=== PATIENT | male | born 1950 | race African-American/Black ===

== ENCOUNTER → 2021-06-24 | Day surgery (SDC) | payer MEDICARE ==
[~2021-06-24] VITALS: Ht 185.4 cm; Wt 78.0 kg
[~2021-06-24] MED LIST: AMLODIPINE BESYL5 MG PO; MORPHINE SULFAT60 M1 PO; NORCO 5/3251 EACH PO; VENTOLIN HFA IN18 GM INH
== END | disposition home or self-care (01) ==
LOC: FAS 08:24
DX: Z12.11 Encounter for screening for malignant neoplasm of colon (principal); Z80.0 Family history of malignant neoplasm of digestive organs; Z86.010 Personal history of colon polyps; I10 Essential (primary) hypertension; G47.30 Sleep apnea, unspecified; J40 Bronchitis, not specified as acute or chronic; G89.29 Other chronic pain; F17.200 Nicotine dependence, unspecified, uncomplicated
CPT/HCPCS: J1642; J2704; J7120

== ENCOUNTER 2021-10-04 07:23 | Emergency (ER) | payer MEDICARE, OTHER ==
[~2021-10-04 07:23] MED LIST changes: +3IN1 COMMODE; +ALBUTEROL HFA INH; +MORPHINE SULFAT90 MG PO; +MUCINEX 600MG600 MG PO; +NORVASC5 MG PO; +ONDANSETRON ODT4 MG PO
[2021-10-04 08:26] LABS: BASOPHIL 0.6 % (0-2); EOSINOPHIL 0.1 % (0-7); HCT 41.2 % (42.0-52.0); HGB 13.2 g/dl (13.2-18.0); LYMPHOCYTE 28.3 % (15-48); MCH 26.7 pg (25.0-31.0); MCV 83.4 fL (78.0-100.0); MONOCYTE 11.6 % (0-12); MPV 10.5 fL (6.0-9.5); NEUTROPHIL 51.6 % (41-80); NRBC 0; PLT 261 K/uL (150-400); RBC 4.94 M/uL (4.70-6.00); RDW 13.5 % (11.5-14.0); WBC 7.7 K/uL (4.0-10.5)
[2021-10-04 08:31] LABS: INR 1.09 (0.9-1.2); PROTHROMBIN TIME 13.5 SECONDS (11.8-13.4)
[2021-10-04 08:33] LABS: D-DIMER 2.53 ug/mLFEU (0.00-0.41)
[2021-10-04 08:43] LABS: ALBUMIN 1.8 g/dL (3.4-5.0); BILIRUBIN - TOTAL 0.4 mg/dL (0.2-1.0); BUN/CREAT RATIO (CALC) 27.5 RATIO; C-REACTIVE PROTEIN 0.8 mg/dL (<=0.90); CREATININE 1.71 mg/dL (0.67-1.17); GLOBULIN (CALCULATION) 4.3 g/dL; MAGNESIUM 1.7 mg/dL (1.8-2.4); POTASSIUM 3.9 mmol/L (3.5-5.1); TOTAL PROTEIN 6.1 g/dL (6.4-8.2)
[2021-10-04 08:54] LABS: PTT 71.3 SECONDS (24.4-34.7)
[2021-10-04 08:55] LABS: LACTIC ACID 1.4 mmol/L (0.4-1.9)
[2021-10-04 09:15] LABS: IRON % SATURATION 20.7 %SAT (20-50)
[2021-10-04 11:11] LABS: BILIRUBIN NEGATIVE (NEGATIVE); BLOOD 2+ Ery/uL (NEGATIVE); CLARITY CLEAR (CLEAR); COLOR YELLOW (YELLOW); GLUCOSE (U) NORMAL (NORMAL); LEUKOCYTES NEGATIVE Leu/uL (NEGATIVE); NITRITE NEGATIVE (NEGATIVE); PROTEIN 2+ mg/dL (NEGATIVE); UROBILINOGEN 0.2 mg/dL (0.2-1.0); pH 5.5 (5.0-9.0)
[2021-10-04 11:23] LABS: BACTERIA TRACE; URINARY RBC RARE
[2021-10-04] MEDS ORDERED: LEVAQUIN750 MG PO (14:37)
== END 2021-10-04 15:11 | disposition home or self-care (01) ==
LOC: FER 07:23
PROVIDERS: Emergency Medicine
DX: U07.1 COVID-19 (principal)
CPT/HCPCS: 36415; 36600; 71250; 80053; 81001; 82728; 82803; 83540; 83550; 83605; 83615; 83735; 83880; 84145; 84443; 84484; 85025; 85379; 85610; 85730; 86140; 93005; G0480; J1642; J2543; J7030